=== PATIENT | female | born 1960 | race Caucasian/White ===

== ENCOUNTER 2019-02-24 10:12 | Emergency (ER) | payer OTHER, SELFPAY ==
--- NOTE | 2019-02-24 10:18 | ED.GENADUL_ITS ---
Discharge Plan Disposition Patient Disposition: HOME Condition: Stable Discharge Details Chief Complaint: Abd Prob Clinical Impression: Abdominal pain Primary Care Provider: Audra Calderon ED Provider: Georgie Waters Home Meds and New Rx's Prescriptions: New pantoprazole [Protonix] 40 mg tablet,delayed release (DR/EC) 40 mg PO DAILY Qty: 30 RF: 0 Continued ranitidine HCl 150 mg Tablet 150 mg PO BID RF: 0 Discharge Instructions Instructions: Abdominal Pain (ED) Additional Instructions: Please return immediately to the emergency department if you develop any new or worsening symptoms or if you become otherwise concerned. It is extremely important that you make an appointment to be seen in follow-up for this visit as soon as possible by your primary care doctor. Referrals: Audra Calderon [Primary Care Provider] - Discharge Data Discharge Date/Time-TO BE ENTERED AT DEPARTURE: 02/24/19 15:33 Medical Decision Making Audra Walker is a 58 y/o woman with history of GERD who presented to the emergency department with right upper quadrant pain since yesterday, worse with eating. On exam patient is well and nontoxic appearing but does appear uncomfortable. She has epigastric and right upper quadrant pain with a positive Andino sign, no peritoneal signs. Benign cardiopulmonary exam. Concern for biliary disease versus gastritis versus peptic ulcer disease versus pancreatitis versus less likely ACS. Exam/history is not consistent with PE, acute aortic pathology, sepsis, mesenteric ischemia. Plan for EKG, screening labs, right upper quadrant ultrasound, IV pain control, IV Zofran. Will monitor and reassess. Right upper quadrant ultrasound negative. Patient reporting pain improved after morphine but continued. Plan for CT scan. CT scan negative for acute process. Repeat EKG and troponin negative. Suspect gastritis/peptic ulcer disease. GI cocktail resulted in improvement of pain. Plan for Rx pantoprazole. I had a lengthy discussion with the patient prior to discharge regarding return to emergency department precautions, home care, and importance of outpatient follow-up. Clear plan in place for follow-up at time of discharge. Patient verbalized understanding of the plan and was amenable. All questions were answered. Medical Records Medical records reviewed: Yes I reviewed the patient's medical records. Imaging Data Radiologic Study: Attestation: I personally reviewed and interpreted this imaging study as follows: Radiologist's impression: ABDOMINAL ULTRASOUND: The hepatic parenchyma appears mildly echogenic without focal abnormality and the findings may represent hepatic steatosis. No cholelithiasis or biliary dilatation seen. The pancreas appears intact as visualized although the tail was not seen. The aorta and IVC are of normal diameter. The kidneys and spleen appear intact. There is a presumed extrarenal pelvis on the right. CONCLUSION: Negative examination of the abdomen except for a question of hepatic steatosis. ABDOMINAL AND PELVIC CT: A CT examination of the abdomen and pelvis was performed following the intravenous infusion of Omnipaque 350 and the ingestion of oral contrast. There may be mild hepatic steatosis. The spleen is normal in size and shape with no evidence of any focal defects. There is no evidence of biliary dilatation. The gallbladder has a normal CT appearance. The pancreas appears intact and is not enlarged. There is no evidence of retroperitoneal lymphadenopathy. The bladder appears intact. The kidneys show bilateral function and there is no evidence of a renal mass. The vascular structures appear intact. There is no evidence of a mass in the pelvis. There is no evidence of a fluid collection or adenopathy. CONCLUSION: No evidence of acute disease. Question mild hepatic steatosis. Lab Data Lab results reviewed: Yes I reviewed the patient's lab results. Laboratory Tests Range/Units 02/24/19 02/24/19 02/24/19 10:35 11:00 11:00 WBC (4.4-10.8) k/cumm 6.77 RBC (4.00-5.20) m/cumm 4.97 Hgb (12.0-15.5) g/dL 14.8 Hct (36.0-46.0) % 44.0 MCV (80-95) fL 88.5 MCH (27.0-33.0) pg 29.8 MCHC (32.0-36.0) g/dL 33.6 RDW (11.7-14.6) % 13.5 Plt Count (130-400) x1000/uL 177 MPV (8.0-11.0) fL 11.3 H Immature Gran % 0.1 Neutrophils % 87.4 Lymphocytes % 4.6 Monocytes % 5.9 Eosinophils % 1.9 Basophils % 0.1 Absolute Neutrophils (1.2-6.7) k/cumm 5.91 Absolute Lymphocytes (1.2-3.4) k/cumm 0.31 L Absolute Monocytes (0.11-0.7) k/cumm 0.40 Absolute Eosinophils (0.0-0.7) k/cumm 0.13 Absolute Basophils (0.0-0.2) k/cumm 0.01 ESR (0-30) MM/HR Sodium (136-145) mmol/L 138 Potassium (3.5-5.1) mmol/L 3.8 Chloride (98-107) mmol/L 100 Carbon Dioxide (21.0-32.0) mmol/L 26.3 Anion Gap (3-11) mmol/L 11.7 H BUN (7-18) mg/dL 18 Creatinine (0.55-1.02) mg/dL 0.93 Estimated GFR/1.73 m2 (mL/min/1.73m2) >= 60.00 Glucose (70-100) mg/dL 112 H Calcium (8.5-10.1) mg/dL 8.9 Total Bilirubin (0.2-1.0) mg/dL 0.7 AST (15-37) U/L 30 ALT (12-78) U/L 53 Alkaline Phosphatase (46-116) U/L 95 Troponin I (0.00-0.06) ng/mL C-Reactive Protein (0.0-0.3) mg/dL Total Protein (6.4-8.2) g/dL 8.0 Albumin (3.4-5.0) g/dL 4.3 Lipase (73-393) U/L Urine Color (Yellow) Yellow Urine Clarity Clear Urine pH (5-8) 5.5 Ur Specific Williams (1.005-1.025) 1.025 Urine Protein (Negative) mg/dL Negative Urine Ketones (Negative) mg/dL Negative Urine Blood (Negative) Negative Urine Nitrite (Negative) Negative Urine Bilirubin (Negative) Negative Urine Urobilinogen (Up TO 0.2) EU/dL 0.2 Ur Leukocyte Esterase (Negative) Negative Urine Glucose (Negative) mg/dL Negative Range/Units 02/24/19 02/24/19 02/24/19 11:00 11:00 11:00 WBC (4.4-10.8) k/cumm RBC (4.00-5.20) m/cumm Hgb (12.0-15.5) g/dL Hct (36.0-46.0) % MCV (80-95) fL MCH (27.0-33.0) pg MCHC (32.0-36.0) g/dL RDW (11.7-14.6) % Plt Count (130-400) x1000/uL MPV (8.0-11.0) fL Immature Gran % Neutrophils % Lymphocytes % Monocytes % Eosinophils % Basophils % Absolute Neutrophils (1.2-6.7) k/cumm Absolute Lymphocytes (1.2-3.4) k/cumm Absolute Monocytes (0.11-0.7) k/cumm Absolute Eosinophils (0.0-0.7) k/cumm Absolute Basophils (0.0-0.2) k/cumm ESR (0-30) MM/HR 11 Sodium (136-145) mmol/L Potassium (3.5-5.1) mmol/L Chloride (98-107) mmol/L Carbon Dioxide (21.0-32.0) mmol/L Anion Gap (3-11) mmol/L BUN (7-18) mg/dL Creatinine (0.55-1.02) mg/dL Estimated GFR/1.73 m2 (mL/min/1.73m2) Glucose (70-100) mg/dL Calcium (8.5-10.1) mg/dL Total Bilirubin (0.2-1.0) mg/dL AST (15-37) U/L ALT (12-78) U/L Alkaline Phosphatase (46-116) U/L Troponin I (0.00-0.06) ng/mL C-Reactive Protein (0.0-0.3) mg/dL 0.91 H Total Protein (6.4-8.2) g/dL Albumin (3.4-5.0) g/dL Lipase (73-393) U/L 122 Urine Color (Yellow) Urine Clarity Urine pH (5-8) Ur Specific Williams (1.005-1.025) Urine Protein (Negative) mg/dL Urine Ketones (Negative) mg/dL Urine Blood (Negative) Urine Nitrite (Negative) Urine Bilirubin (Negative) Urine Urobilinogen (Up TO 0.2) EU/dL Ur Leukocyte Esterase (Negative) Urine Glucose (Negative) mg/dL Range/Units 02/24/19 11:00 WBC (4.4-10.8) k/cumm RBC (4.00-5.20) m/cumm Hgb (12.0-15.5) g/dL Hct (36.0-46.0) % MCV (80-95) fL MCH (27.0-33.0) pg MCHC (32.0-36.0) g/dL RDW (11.7-14.6) % Plt Count (130-400) x1000/uL MPV (8.0-11.0) fL Immature Gran % Neutrophils % Lymphocytes % Monocytes % Eosinophils % Basophils % Absolute Neutrophils (1.2-6.7) k/cumm Absolute Lymphocytes (1.2-3.4) k/cumm Absolute Monocytes (0.11-0.7) k/cumm Absolute Eosinophils (0.0-0.7) k/cumm Absolute Basophils (0.0-0.2) k/cumm ESR (0-30) MM/HR Sodium (136-145) mmol/L Potassium (3.5-5.1) mmol/L Chloride (98-107) mmol/L Carbon Dioxide (21.0-32.0) mmol/L Anion Gap (3-11) mmol/L BUN (7-18) mg/dL Creatinine (0.55-1.02) mg/dL Estimated GFR/1.73 m2 (mL/min/1.73m2) Glucose (70-100) mg/dL Calcium (8.5-10.1) mg/dL Total Bilirubin (0.2-1.0) mg/dL AST (15-37) U/L ALT (12-78) U/L Alkaline Phosphatase (46-116) U/L Troponin I (0.00-0.06) ng/mL < 0.02 C-Reactive Protein (0.0-0.3) mg/dL Total Protein (6.4-8.2) g/dL Albumin (3.4-5.0) g/dL Lipase (73-393) U/L Urine Color (Yellow) Urine Clarity Urine pH (5-8) Ur Specific Williams (1.005-1.025) Urine Protein (Negative) mg/dL Urine Ketones (Negative) mg/dL Urine Blood (Negative) Urine Nitrite (Negative) Urine Bilirubin (Negative) Urine Urobilinogen (Up TO 0.2) EU/dL Ur Leukocyte Esterase (Negative) Urine Glucose (Negative) mg/dL ECG Data Attestation: I personally reviewed and interpreted this ECG (s) as follows: Interpretation: EKG shows sinus rhythm at 78, normal axis, Q waves V1 and V2, no acute ischemic changes, nondiagnostic EKG EKG #2 shows sinus rhythm at 79, normal axis, no acute ischemic changes, nondiagnostic EKG HPI General Mode of arrival: ambulatory . Date/Time Provider Initiated Documentation: 02/24/19 10:18 . Limitations to Documentation: no limitations . Information obtained by: patient, RN notes reviewed and old records reviewed . HPI Narrative: Audra Walker is a 58 y/o woman with history of GERD presenting to the emergency department with abdominal pain. Patient reports that she de veloped right upper quadrant pain yesterday, and saw her PCP this morning for this. She was sent in from her PCPs office for further evaluation. Patient reports that pain is sharp and burning, and is made worse by eating. Nonexertional, nonpleuritic, non-positional. She has had nausea without vomiting. No constipation or diarrhea. She denies any other pain, fevers, shortness of breath, cough. She is previously in her usual state of health without recent illness. No recent travel. Related Data Home Medications Medication Instructions Recorded Confirmed pantoprazole [Protonix] 40 mg PO DAILY #30 tab 02/24/19 ranitidine HCl 150 mg PO BID 02/24/19 02/24/19 Previous Rx's Medication Instructions Recorded pantoprazole [Protonix] 40 mg PO DAILY #30 tab 02/24/19 Allergies Allergy/AdvReac Type Severity Reaction Status Date / Time No Known Allergies Allergy Unverified 02/24/19 10:27 Review of Systems Review of Systems Constitutional: denies fevers Eyes: denies eye pain ENT: denies facial pain, dental pain, sore throat Cardiovascular: denies chest pain Respiratory: denies SOB, cough GI: Reports abdominal pain, denies vomiting, diarrhea : denies flank pain MSK: denies back pain, neck pain, arthralgias, myalgias Skin: denies rash Neuro: denies headaches, numbness, weakness [facility] Medical History Hearing impairment Reflux gastritis Vertigo Surgical History Colonoscopy - MAC (09/14/17) Family History Other Hyperlipidemia Personal history of malignant neoplasm Social History Smoking/Tobacco Use Status: Never Drug use: Never Substance use type: does not use Do you feel safe in your relationship?: Yes Exam Narrative Exam Narrative: Constitutional: well and [id number], pleasant, conversing normally but appears uncomfortable HENT: head atraumatic/normocephalic/normal inspection, mucous membranes moist Eyes: conjunctiva normal, sclera normal, pupils 3mm b/l Neck: no stridor, normal ROM, trachea midline Chest: normal inspection Resp: normal work of breathing, LCTAB Cardio: normal rate, normal rhythm, no murmur appreciated GI: abdomen soft, non-distended, moderate tenderness to palpation in right upper quadrant and epigastrium with positive Andino sign, no lower abdominal tenderness to palpation, no rebound or guarding, no CVA tenderness bilaterally Back: normal inspection, no rash Skin: warm, dry, normal color, no rash Neuro: alert, not altered, grossly non-focal, normal tone Ext: no edema Psych: normal mood, normal affect, normal behavior
[2019-02-24 10:23] VITALS: BP 150/76; PULSE 81; RESP 16; TEMP 36.6; O2SAT 99
[2019-02-24 10:47] LABS: Bilirubin Negative (Negative); Blood Negative (Negative); Clarity Clear; Glucose Negative (Negative); Ketones Negative (Negative); Leukocyte Esterase Negative (Negative); Nitrite Negative (Negative); Specific Gravity 1.025 (1.005-1.025); Urobilinogen 0.2 EU/dL (Up TO 0.2); pH 5.5 (5-8)
--- NOTE | 2019-02-24 10:53 | DI.US_ITS ---
SYMPTOMS/DIAGNOSIS: RT UPPER QUAD PAIN ABDOMINAL ULTRASOUND: The hepatic parenchyma appears mildly echogenic without focal abnormality and the findings may represent hepatic steatosis. No cholelithiasis or biliary dilatation seen. The pancreas appears intact as visualized although the tail was not seen. The aorta and IVC are of normal diameter. The kidneys and spleen appear intact. There is a presumed extrarenal pelvis on the right. CONCLUSION: Negative examination of the abdomen except for a question of hepatic steatosis.
[2019-02-24] MEDS: Ondansetron 4 MG/2 ML VIAL IVP (11:10)
[2019-02-24 11:14] LABS: Abs Immature Grans 0.01 k/cumm (0.0-0.09); Absolute Basophil Count 0.01 k/cumm (0.0-0.2); Absolute Eosinophil Count 0.13 k/cumm (0.0-0.7); Absolute Lymphocyte Count 0.31 k/cumm (1.2-3.4); Absolute Neutrophil Count 5.91 k/cumm (1.2-6.7); Basophils % 0.1; Eosinophils % 1.9; HGB 14.8 g/dL (12.0-15.5); Immature Grans % 0.1; Lymphocytes % 4.6; Mean Corp. HGB Concentration 33.6 g/dL (32.0-36.0); Mean Corpuscular Hemoglobin 29.8 pg (27.0-33.0); Mean Corpuscular Volume 88.5 fL (80-95); Mean Platelet Volume 11.3 fL (8.0-11.0); Monocytes % 5.9; Neutrophils % 87.4; Platelet Count 177 x1000/uL (130-400); RBC 4.97 m/cumm (4.00-5.20); RBC Distribution Width 13.5 % (11.7-14.6); White Blood Cell Count 6.77 k/cumm (4.4-10.8)
[2019-02-24 11:19] LABS: Lipase 122 U/L (73-393)
[2019-02-24 11:24] LABS: ALT 53 U/L (12-78); AST 30 U/L (15-37); Albumin 4.3 g/dL (3.4-5.0); Alkaline Phosphatase 95 U/L (46-116); Anion Gap 11.7 mmol/L (3-11); BUN 18 mg/dL (7-18); Bilirubin, Total 0.7 mg/dL (0.2-1.0); CO2 26.3 mmol/L (21.0-32.0); CREATININE 0.93 mg/dL (0.55-1.02); Calcium 8.9 mg/dL (8.5-10.1); Chloride 100 mmol/L (98-107); Glucose 112 mg/dL (70-100); Potassium 3.8 mmol/L (3.5-5.1); Sodium 138 mmol/L (136-145)
[2019-02-24] MEDS: Normal Saline 1,000 ML 1000 ML IV (12:05)
--- NOTE | 2019-02-24 12:24 | DI.CT_ITS ---
SYMPTOMS/DIAGNOSIS: RIGHT UPPER QUADRANT PAIN ABDOMINAL AND PELVIC CT: A CT examination of the abdomen and pelvis was performed following the intravenous infusion of Omnipaque 350 and the ingestion of oral contrast. There may be mild hepatic steatosis. The spleen is normal in size and shape with no evidence of any focal defects. There is no evidence of biliary dilatation. The gallbladder has a normal CT appearance. The pancreas appears intact and is not enlarged. There is no evidence of retroperitoneal lymphadenopathy. The bladder appears intact. The kidneys show bilateral function and there is no evidence of a renal mass. The vascular structures appear intact. There is no evidence of a mass in the pelvis. There is no evidence of a fluid collection or adenopathy. CONCLUSION: No evidence of acute disease. Question mild hepatic steatosis.
[2019-02-24 13:10] LABS: C-Reactive Protein 0.91 mg/dL (0.0-0.3)
[2019-02-24 13:40] LABS: ESR 11 MM/HR (0-30)
[2019-02-24] MEDS: Omnipaque 350 MG/ML 100 ML BTL IJ (13:56)
[2019-02-24 15:07] LABS: Troponin I < 0.02 ng/mL (0.00-0.06)
[2019-02-24 15:13] VITALS: BP 100/56; PULSE 78; RESP 16; O2SAT 96
[2019-02-24 15:30] VITALS: BP 100/56; PULSE 78; RESP 16; TEMP 36.6; O2SAT 96
== END 2019-02-24 15:33 | disposition home or self-care (01) ==
PROVIDERS: Emergency Provider Student in an Organized Health Care Education/Training Program; PCP Family Medicine
DX: R10.11 Right upper quadrant pain (principal)
CPT/HCPCS: 36415; 80053; 83690; 85652; 93005; 96361; 96374; 96375; 99285; 74177; 76700; 81003; 84484; 85025; 86140; 93010; J2405; J3490

== ENCOUNTER 2019-02-28 02:23 | Outpatient (CLI) | payer OTHER, SELFPAY ==
--- NOTE | 2019-02-28 08:30 | DI.NM_ITS ---
SYMPTOM/DIAGNOSIS: ACUTE ABD PAIN, R19.0 HEPATOBILIARY SCAN: Hepatobiliary scan was performed with intravenous infusion of 4.6 millicuries of Technetium 99 labeled Mebrofenin. Following intravenous injection of radiopharmaceutical, there was prompt homogeneous hepatic uptake and prompt uptake in the bile ducts, gallbladder and small intestine. CONCLUSION: Normal hepatobiliary scan. No evidence of acute cholecystitis.
== END 2019-02-28 02:43 ==
PROVIDERS: PCP Family Medicine; Visit Provider Family Medicine
DX: R10.9 Unspecified abdominal pain (principal)
CPT/HCPCS: 78227

== ENCOUNTER 2019-09-22 08:20 | Outpatient (CLI) | payer OTHER, SELFPAY ==
[2019-09-22 09:04] LABS: Abs Immature Grans 0.01 k/cumm (0.0-0.09); Absolute Basophil Count 0.05 k/cumm (0.0-0.2); Absolute Eosinophil Count 0.16 k/cumm (0.0-0.7); Absolute Lymphocyte Count 1.46 k/cumm (1.2-3.4); Absolute Monocyte Count 0.39 k/cumm (0.11-0.7); Absolute Neutrophil Count 2.89 k/cumm (1.2-6.7); Eosinophils % 3.2; HCT 42.4 % (36.0-46.0); HGB 14.4 g/dL (12.0-15.5); Immature Grans % 0.2; Lymphocytes % 29.4; Mean Corpuscular Hemoglobin 30.2 pg (27.0-33.0); Mean Corpuscular Volume 88.9 fL (80-95); Mean Platelet Volume 11.4 fL (8.0-11.0); Monocytes % 7.9; Neutrophils % 58.3; Platelet Count 229 x1000/uL (130-400); RBC 4.77 m/cumm (4.00-5.20); RBC Distribution Width 12.9 % (11.7-14.6); White Blood Cell Count 4.96 k/cumm (4.4-10.8)
[2019-09-22 10:15] LABS: Iron 103 ug/dL (50-175); Total Iron Binding Capacity 340 ug/dL (250-450); Transferrin Sat 30 % (15-50)
[2019-09-22 10:28] LABS: Anion Gap 8.5 mmol/L (3-11); BUN 17 mg/dL (7-18); CO2 30.5 mmol/L (21.0-32.0); CREATININE 0.91 mg/dL (0.55-1.02); Calcium 9.5 mg/dL (8.5-10.1); Chloride 103 mmol/L (98-107); Ferritin 152 ng/mL (8-388); Glucose 88 mg/dL (70-100); Magnesium 2.2 mg/dL (1.8-2.4); Potassium 4.2 mmol/L (3.5-5.1); Sodium 142 mmol/L (136-145); TSH (W/Ref FT4) 1.36 uIU/mL (0.36-3.74)
[2019-09-22 14:02] LABS: Hemoglobin A1C 5.4 % (4.5-6.2)
== END 2019-09-22 08:40 ==
PROVIDERS: Nurse Practitioner Family; PCP Family Medicine; Visit Provider Family Medicine
DX: J02.9 Acute pharyngitis, unspecified (principal); G47.62 Sleep related leg cramps; R73.9 Hyperglycemia, unspecified
CPT/HCPCS: 36415; 80048; 82728; 83036; 83540; 83550; 83735; 84443; 85025

== ENCOUNTER 2019-09-25 01:46 | Outpatient (CLI) | payer OTHER, SELFPAY ==
--- NOTE | 2019-09-25 07:46 | DI.MAMMO_ITS ---
EXAM: MG MAMMO SCREENING CLINICAL HISTORY: SCREENING, PREVENTIVE CARE, Z00.00,Z12.39 TECHNIQUE: Mammograms were interpreted according to the usual protocol including computer analysis w [employer] CAD system, tomosynthesis and C-view imaging. COMPARISON: [id number] FINDINGS: The breasts are composed of scattered areas of fibroglandular density, breast density category B. No suspicious masses or microcalcifications are seen. There has been no significant change when compared with the prior examinations. IMPRESSION: Category 1, negative mammogram. Yearly screening mammography is recommended. BI-RADS Cat 1 - Negative Breast Density - Category B - Scattered areas of fibroglandular density
== END 2019-09-25 02:06 ==
PROVIDERS: PCP Family Medicine; Visit Provider Family Medicine
DX: Z12.31 Encounter for screening mammogram for malignant neoplasm of breast (principal)
CPT/HCPCS: 77063; 77067

== ENCOUNTER 2021-02-07 03:14 | Outpatient (CLI) | payer OTHER, SELFPAY ==
[2021-02-07 08:39] LABS: HCT 41.3 % (36.0-46.0); HGB 14.1 g/dL (11.2-15.7); MCH 30.3 pg (27.0-33.0); MCHC 34.1 % (32.0-36.0); MCV 88.8 fL (80-95); MPV 11.4 fL (8.0-11.0); Platelet Count 213 10^3/uL (130-400); RBC 4.65 10^6/uL (3.93-5.22); RDW 12.9 % (11.7-14.6); RDW-SD 41.8 fL; WBC 4.29 10^3/uL (4.4-10.8)
[2021-02-07 09:04] LABS: Hemoglobin A1C 5.6 % (<5.7)
[2021-02-07 09:41] LABS: ALT 69 U/L (14-59); AST 34 U/L (15-37); Alkaline Phosphatase 95 U/L (46-116); Anion Gap 11.2 mmol/L (3-11); BUN 17 mg/dL (7-18); Bilirubin, Total 0.4 mg/dL (0.2-1.0); CO2 25.8 mmol/L (21.0-32.0); CREATININE 0.8 mg/dL (0.55-1.02); Calcium 9.1 mg/dL (8.5-10.1); Calculated LDL 115 mg/dL (<100); Chloride 105 mmol/L (98-107); Cholesterol 204 mg/dL (<200); Glucose 103 mg/dL (74-106); HDL Cholesterol 64 mg/dL (40-60); Potassium 4.2 mmol/L (3.5-5.1); Sodium 142 mmol/L (136-145); Total Protein 7.3 g/dL (6.4-8.2); Triglyceride 126 mg/dL (<150)
== END 2021-02-07 03:15 | disposition home or self-care (01) ==
LOC: LBO 03:14
PROVIDERS: PCP Family Medicine; Visit Provider Family Medicine
DX: Z00.00 Encounter for general adult medical examination without abnormal findings (principal); R10.11 Right upper quadrant pain; K64.9 Unspecified hemorrhoids; Z13.1 Encounter for screening for diabetes mellitus; Z13.220 Encounter for screening for lipoid disorders; G47.62 Sleep related leg cramps
CPT/HCPCS: 36415; 80053; 80061; 85027; 83036

== ENCOUNTER 2021-02-24 03:11 | Outpatient (CLI) | payer OTHER, SELFPAY ==
[2021-02-24 09:57] LABS: Source Nasal/Nares
[2021-02-24 12:40] LABS: COVID-19 PCR Negative (Negative)
== END 2021-02-24 03:12 | disposition home or self-care (01) ==
LOC: LBO 03:11
PROVIDERS: PCP Family Medicine; Visit Provider Ophthalmology Ophthalmic Plastic and Reconstructive Surgery
DX: Z20.822 Contact with and (suspected) exposure to COVID-19 (principal)
CPT/HCPCS: 87635

== ENCOUNTER 2022-10-12 09:29 | Outpatient (CLI) | payer OTHER, SELFPAY ==
[2022-10-12 12:31] LABS: Abs Immature Grans 0.02 10^3/uL (0.0-0.06); Absolute Basophil Count 0.06 10^3/uL (0.0-0.2); Absolute Eosinophil Count 0.29 10^3/uL (0.0-0.7); Absolute Lymphocyte Count 1.42 10^3/uL (1.2-3.4); Absolute Monocyte Count 0.56 10^3/uL (0.1-0.8); Absolute Neutrophil Count 3.45 10^3/uL (1.2-6.7); HCT 45.9 % (36.0-46.0); HGB 15.1 g/dL (11.2-15.7); Immature Grans % 0.3; Lymphocytes % 24.5; MCH 29.8 pg (27.0-33.0); MCHC 32.9 % (32.0-36.0); MCV 91 fL (80-95); MPV 12.1 fL (8.0-11.0); Monocytes % 9.7; Neutrophils % 59.5; Platelet Count 237 10^3/uL (130-400); RBC 5.06 10^6/uL (3.93-5.22); RDW 12.6 % (11.7-14.6); RDW-SD 41.5 fL
[2022-10-12 13:18] LABS: ALT 64 U/L (14-59); AST 32 U/L (15-37); Albumin 4.4 g/dL (3.4-5.0); Alkaline Phosphatase 108 U/L (46-116); Anion Gap 8.6 mmol/L (3-11); BUN 15 mg/dL (7-18); Bilirubin, Total 0.7 mg/dL (0.2-1.0); CO2 27.4 mmol/L (21.0-32.0); CREATININE 0.9 mg/dL (0.55-1.02); Calcium 9.7 mg/dL (8.5-10.1); Chloride 105 mmol/L (98-107); Estimated GFR 73.19 (mL/min/1.73m2); Glucose 132 mg/dL (74-106); Potassium 3.5 mmol/L (3.5-5.1); Sodium 141 mmol/L (136-145); Total Protein 8.3 g/dL (6.4-8.2); Vitamin B12 442 pg/mL (193-986)
== END 2022-10-12 09:30 | disposition home or self-care (01) ==
LOC: LOS 09:29
PROVIDERS: PCP Family Medicine; Referring Provider Nurse Practitioner Family; Visit Provider Nurse Practitioner Family
DX: G62.9 Polyneuropathy, unspecified (principal)
CPT/HCPCS: 36415; 80053; 82607; 85025

== ENCOUNTER 2023-01-10 10:11 | Outpatient (REF) | payer OTHER, SELFPAY ==
[2023-01-10 16:06] LABS: ALT 93 U/L (14-59); AST 47 U/L (15-37); Albumin 4.5 g/dL (3.4-5.0); Alkaline Phosphatase 111 U/L (46-116); Anion Gap 11.6 mmol/L (3-11); BUN 15 mg/dL (7-18); Bilirubin, Total 0.6 mg/dL (0.2-1.0); CO2 26.4 mmol/L (21.0-32.0); CREATININE 0.8 mg/dL (0.55-1.02); Calcium 9.6 mg/dL (8.5-10.1); Calculated LDL 135 mg/dL (<100); Chloride 104 mmol/L (98-107); Cholesterol 232 mg/dL (<200); Glucose 106 mg/dL (74-106); HDL Cholesterol 64 mg/dL (40-60); Potassium 4.1 mmol/L (3.5-5.1); Sodium 142 mmol/L (136-145); Total Protein 7.8 g/dL (6.4-8.2); Triglyceride 167 mg/dL (<150); Vitamin B12 514 pg/mL (193-986)
== END 2023-01-10 10:12 | disposition home or self-care (01) ==
LOC: NCHCN 10:11
PROVIDERS: PCP Family Medicine; Visit Provider Family Medicine
DX: E53.9 Vitamin B deficiency, unspecified (principal); Z13.1 Encounter for screening for diabetes mellitus; Z13.220 Encounter for screening for lipoid disorders; R79.89 Other specified abnormal findings of blood chemistry
CPT/HCPCS: 80053; 80061; 82607

== ENCOUNTER 2023-01-22 01:39 | Outpatient (CLI) | payer OTHER, SELFPAY ==
--- NOTE | 2023-01-22 | DI.MAMMO_ITS ---
Exam(s) MAMMO SCREENING EXAM: MAMMO SCREENING CLINICAL HISTORY: SCREENING FOR BREAST CANCER Z12.39 TECHNIQUE: Bilateral full field digital CC and MLO mammographic images were obtained with 3D tomosyn thesis and utilizing computer aided detection (CAD). COMPARISON: Available for comparison. FINDINGS: Masses/Architectural Distortion: There is an area of asymmetric breast tissue in the medial right josselyn ast on the CC view. It may represent overlying fibroglandular tissue, but it appears more prominent compared to the prior examination. Microcalcifications: No suspicious pleomorphic-type are seen. Skin Thickening/Nipple Retraction: None. IMPRESSION: 1. Focal asymmetry in the posterior medial right breast on the craniocaudad view. 2. This should be evaluated with a spot compression view. Limited right breast ultrasound may also b e indicated at that time. BI-RADS Category 0 - Assessment Incomplete: Need additional imaging evaluation Breast Density - Category B - Scattered areas of fibroglandular density Breast density category C or D implies that the patient has dense breast tissue. Dense breast tissue is very common and is not abnormal but dense breast tissue can make it harder to find cancer on a ma mmogram. Also, dense breast tissue may increase their breast cancer risk. This information about the result of the mammogram report was provided to the patient to raise their awareness. Use this report when you speak with the patient about their risks for breast cancer, which includes their family hist ory. At that time, you may recommend for more screening tests (Ultrasound or MRI) as they might be us eful based on their risk. A negative radiographic report should not delay biopsy if a dominant or clinically suspicious mass is present. Up to ten percent of cancers are not identified on mammography. A negative report may reinforce clinical impression. Adenosis and dense breasts may obscure an underlying neoplasm. False positive reports average 6 to 10%. Patient will receive a letter notifying them of these results.
== END 2023-01-22 01:59 ==
LOC: DI 01:39
PROVIDERS: PCP Family Medicine; Visit Provider Family Medicine
DX: Z12.31 Encounter for screening mammogram for malignant neoplasm of breast (principal); R92.8 Other abnormal and inconclusive findings on diagnostic imaging of breast
CPT/HCPCS: 77063; 77067

== ENCOUNTER 2023-01-25 01:58 | Outpatient (CLI) | payer OTHER, SELFPAY ==
--- NOTE | 2023-01-25 | DI.MAMMO_ITS ---
Exam(s) MG MAMMO SCREEN CALL BACK UNI EXAM: MG MAMMO SCREEN CALL BACK UNI CLINICAL HISTORY: F/U ABNL MAMMO, ASYMMETRIC BREAST TISSUE RT BREAST. TECHNIQUE: Craniocaudal and mediolateral oblique Full Field Digital Mammography views of the right b reast with Computer Aided Diagnosis. COMPARISON: Comparison is made with prior examinations. FINDINGS: Mammography/Tomosynthesis: Masses/Architectural Distortion: The area of concern does not persist on the follow-up examination. There has been no significant change in appearance of the right breast compared to the prior examinat ions. Microcalcifictions: No suspicious pleomorphic-type are seen. Skin Thickening/Nipple Retraction: None. IMPRESSION: 1. No evidence of malignancy is noted. 2. Unless there is more urgent need, follow-up screening mammography is recommended, as per [employer] guidelines. 3. The findings were discussed with the patient on the date of the examination. BI-RADS Category 1 - Negative Breast Density - Category B - Scattered areas of fibroglandular density Breast density Category C or D implies that the patient has dense breast tissue. Dense breast tissue can make it harder to find cancer on a mammogram. Dense breast tissue is also associated with an incr eased risk of breast cancer. This information about the result of the mammogram report was provided to the patient to raise their awareness. Use this report when you speak with the patient about their risks for breast cancer, which includes their family history. At that time, you may recommend additional screening tests (Ultrasoun d or MRI) as these tests may add significant information. A negative radiographic report should not delay biopsy if a dominant or clinically suspicious mass is present. Up to ten percent of cancers are not identified on mammography. A negative report may reinforce clinical impression. Adenosis and dense breasts may obscure an underlying neoplasm. False positive reports average 6 to 10%. Patient will receive a letter notifying them of these results.
== END 2023-01-25 02:18 ==
LOC: DI 01:58
PROVIDERS: PCP Family Medicine; Visit Provider Family Medicine
DX: Z12.31 Encounter for screening mammogram for malignant neoplasm of breast (principal); R92.8 Other abnormal and inconclusive findings on diagnostic imaging of breast; N64.59 Other signs and symptoms in breast
CPT/HCPCS: 77063; 77067

== ENCOUNTER 2023-04-19 11:34 | Outpatient (REF) | payer OTHER, SELFPAY ==
--- NOTE | 2023-04-19 11:15 | PAPFT_PTH ---
PATIENT: Audra Walker LOC: [facility]#:[id number] AGE/SX: 62/F ROOM: RE04/19/[address]: Heather Perez : 1960 BED: DIS: 04/19/2023 SPEC #: [id number] RECD: 04/19/23 17:04 STATUS: ROBBIN JENSEN #: [id number] JOSEFINA: 04/19/23 11:[address]: Heather Perez DEPT: [facility] Cytology RECD BY: Nati Addison ENTERED: 04/19/23 17:04 SP TYPE: PAPFT OTHR DR: Audra Calderon Tissues: 1 - CX/ENDOCX FOR PAP SMEARS Procedures: PAP THIN PREP/UVM Screening HPV DNA PROBE Comments: [id number]
[2023-04-19 14:49] LABS: ALT 76 U/L (14-59); AST 46 U/L (15-37); Albumin 4.9 g/dL (3.4-5.0); Alkaline Phosphatase 110 U/L (46-116); Anion Gap 10.5 mmol/L (3-11); BUN 19 mg/dL (7-18); Bilirubin, Total 0.7 mg/dL (0.2-1.0); CO2 27.5 mmol/L (21.0-32.0); CREATININE 0.8 mg/dL (0.55-1.02); Calcium 10.1 mg/dL (8.5-10.1); Chloride 102 mmol/L (98-107); Glucose 94 mg/dL (74-106); Potassium 4.3 mmol/L (3.5-5.1); Sodium 140 mmol/L (136-145); TSH (W/Ref FT4) 1.52 uIU/mL (0.36-3.74); Total Protein 8.6 g/dL (6.4-8.2)
[2023-04-19 16:01] LABS: Vitamin D 25 Total 14.2 ng/mL (30-100)
== END 2023-04-19 11:35 | disposition home or self-care (01) ==
LOC: NCHCN 11:34
PROVIDERS: PCP Family Medicine; Visit Provider Family Medicine
DX: Z00.00 Encounter for general adult medical examination without abnormal findings (principal); K75.81 Nonalcoholic steatohepatitis (NASH); E66.9 Obesity, unspecified; Z13.220 Encounter for screening for lipoid disorders; Z13.29 Encounter for screening for other suspected endocrine disorder; E55.9 Vitamin D deficiency, unspecified; Z12.4 Encounter for screening for malignant neoplasm of cervix; Z11.51 Encounter for screening for human papillomavirus (HPV)
CPT/HCPCS: 80053; 82306; 88142; 84443; 87624

== ENCOUNTER 2024-01-16 14:12 | Outpatient (CLI) | payer OTHER, SELFPAY ==
[2024-01-16 13:53] LABS: HCT 43.9 % (36.0-46.0); HGB 14.8 g/dL (11.2-15.7); MCH 29.7 pg (27.0-33.0); MCHC 33.7 % (32.0-36.0); MCV 88 fL (80-95); MPV 11.1 fL (8.0-11.0); Platelet Count 239 10^3/uL (130-400); RBC 4.98 10^6/uL (3.93-5.22); RDW 12.9 % (11.7-14.6); RDW-SD 41.8 fL; WBC 6.88 10^3/uL (4.4-10.8)
[2024-01-16 14:03] LABS: Hemoglobin A1C 5.7 % (<5.7)
[2024-01-16 14:10] LABS: ALT 56 U/L (14-59); AST 31 U/L (15-37); Albumin 4.2 g/dL (3.4-5.0); Alkaline Phosphatase 118 U/L (46-116); Anion Gap 10.1 mmol/L (3-11); BUN 21 mg/dL (7-18); Bilirubin, Total 0.6 mg/dL (0.2-1.0); CO2 26.9 mmol/L (21.0-32.0); Calcium 10.1 mg/dL (8.5-10.1); Chloride 104 mmol/L (98-107); Estimated GFR 64.09 (mL/min/1.73m2); Glucose 99 mg/dL (74-106); Potassium 3.5 mmol/L (3.5-5.1); Sodium 141 mmol/L (136-145); Total Protein 8.1 g/dL (6.4-8.2)
[2024-01-16 14:33] LABS: Vitamin D 25 Total 9.1 ng/mL (30-100)
== END 2024-01-16 14:13 | disposition home or self-care (01) ==
LOC: LBO 14:12
PROVIDERS: PCP Family Medicine; Visit Provider Family Medicine
DX: F10.10 Alcohol abuse, uncomplicated (principal); K75.81 Nonalcoholic steatohepatitis (NASH); E55.9 Vitamin D deficiency, unspecified; R79.89 Other specified abnormal findings of blood chemistry; E66.8 Other obesity
CPT/HCPCS: 36415; 80053; 82306; 85027; 83036

== ENCOUNTER 2024-04-10 05:24 | Outpatient (CLI) | payer OTHER, SELFPAY ==
[2024-04-10 12:27] LABS: HCT 41.5 % (36.0-46.0); HGB 14.2 g/dL (11.2-15.7); MCHC 34.2 % (32.0-36.0); MCV 88 fL (80-95); MPV 11.3 fL (8.0-11.0); Platelet Count 246 10^3/uL (130-400); RBC 4.74 10^6/uL (3.93-5.22); RDW 12.7 % (11.7-14.6); RDW-SD 40.4 fL; WBC 6.32 10^3/uL (4.4-10.8)
[2024-04-10 12:39] LABS: Hemoglobin A1C 5.9 % (<5.7)
[2024-04-10 13:33] LABS: ALT 53 U/L (14-59); AST 35 U/L (15-37); Albumin 4.2 g/dL (3.4-5.0); Alkaline Phosphatase 93 U/L (46-116); Anion Gap 9.5 mmol/L (3-11); BUN 15 mg/dL (7-18); Bilirubin, Total 0.6 mg/dL (0.2-1.0); CO2 30.5 mmol/L (21.0-32.0); CREATININE 0.9 mg/dL (0.55-1.02); Calcium 9.8 mg/dL (8.5-10.1); Chloride 100 mmol/L (98-107); Estimated GFR 72.73 (mL/min/1.73m2); Glucose 100 mg/dL (74-106); Sodium 140 mmol/L (136-145); Total Protein 7.9 g/dL (6.4-8.2)
== END 2024-04-10 05:25 | disposition home or self-care (01) ==
PROVIDERS: PCP Family Medicine; Visit Provider Family Medicine
DX: F10.10 Alcohol abuse, uncomplicated (principal); K75.81 Nonalcoholic steatohepatitis (NASH); E55.9 Vitamin D deficiency, unspecified; E66.9 Obesity, unspecified; I10 Essential (primary) hypertension
CPT/HCPCS: 36415; 80053; 82306; 85027; 83036

== ENCOUNTER 2024-04-23 18:16 | Emergency (ER) | payer OTHER, SELFPAY ==
[2024-04-23] VITALS (19 sets, daily range): BP systolic 157–199; BP diastolic 74–119; PULSE 59–69; RESP 12–22; TEMP 36.7; O2SAT 98
--- NOTE | 2024-04-23 18:32 | W.ED.GENAD ---
Discharge Plan Disposition Patient Disposition: Home Condition: Stable Discharge Details Clinical Impression: Leg swelling Primary Care Provider: Audra Calderon ED Provider: Eyal Ball Home Meds and New Rx's Prescriptions: New furosemide 20 mg tablet 20 mg PO DAILY Qty: 30 0RF Continued losartan 50 mg tablet 50 mg PO DAILY Patient Comments: TAKE 1 TABLET BY MOUTH EVERY DAY cholecalciferol (vitamin D3) 25 mcg (1,000 unit) capsule 25 mcg PO DAILY Patient Comments: TAKE 1 CAPSULE BY MOUTH EVERY DAY Discharge Instructions Additional Instructions: Your blood work did not show any concerning findings at this time. Try keeping her legs elevated when sitting or laying down, and can also use [id number] compression stockings. Follow-up primary care provider within 1 to 2 weeks. You should have your blood pressure rechecked with them and also discuss if you should continue the furosemide. If you are more ill or have new symptoms such as difficulty breathing or chest pain return to the emergency department for reevaluation HPI General Mode of arrival: ambulatory. Date/Time Provider Initiated Documentation: 04/23/24 18:17. Limitations to Documentation: no limitations. Information obtained by: patient. History of Present Illness 63 year old F presents to the emergency department with the chief complaint of Leg cramps, described as moderate, Quality is described as aching, Patient started experiencing this day(s) (3) and it has been constant. No relieving factors improve symptom(s), No exacerbating factors reported . Patient notes denies chest pain, fever/chills and shortness of breath. Patient did receive the following treatments prior to arrival, none Related Data Home Medications Medication Instructions Recorded Confirmed cholecalciferol (vitamin D3) 25 25 mcg PO DAILY 04/23/24 04/23/24 mcg (1,000 unit) capsule furosemide 20 mg tablet 20 mg PO DAILY #30 tabs 04/23/24 losartan 50 mg tablet 50 mg PO DAILY 04/23/24 04/23/24 Previous Rx's Medication Instructions Recorded furosemide 20 mg tablet 20 mg PO DAILY #30 tabs 04/23/24 Allergies Allergy/AdvReac Type Severity Reaction Status Date / Time No Known Allergies Allergy Unverified 10/12/22 09:03 General Stated Complaint: GenMedical MONICA: 3 Review of Systems All systems reviewed & are unremarkable except as noted in HPI and below Constitutional Constitutional: Denies chills, Denies fever(s) and Denies weakness Cardiovascular Cardiovascular: Denies chest pain and Denies dyspnea Respiratory Respiratory: Denies cough and Denies dyspnea Gastrointestinal Gastrointestinal: Denies abdominal pain, Denies nausea and Denies vomiting Neurologic Neurologic: Denies weakness Exam Const General: no acute distress Orientation: alert [facility] Head: normal to inspection Ears: external ears normal General nose exam: external nose normal Mouth: moist mucous membranes Eyes General: appearance normal, both eyes and all related structures Neck Neck: normal visual inspection Resp Effort & Inspection: normal respiratory effort and able to speak in complete sentences Cardio Rate: regular rate Skin General skin exam: no rashes or lesions noted Neuro General: patient alert and patient oriented x3 Extrem General: full ROM and capillary refill normal Psych Mental Status: mental status grossly normal Course Vital Signs Vital signs: Vital Signs Temperature 36.7 C 04/23/24 18:23 Pulse 63 04/23/24 18:23 Respiratory Rate 18 04/23/24 18:23 Blood Pressure 199/86 H 04/23/24 18:23 Pulse Oximetry 98 04/23/24 18:23 Temperature 36.7 C 04/23/24 18:23 Pulse 63 04/23/24 18:23 Respiratory Rate 18 04/23/24 18:23 Respiratory Effort Normal 04/23/24 18:27 Blood Pressure 199/86 H 04/23/24 18:23 Blood Pressure Position Sitting 04/23/24 18:23 Pulse Oximetry 98 04/23/24 18:23 Oxygen Delivery Method Room Air 04/23/24 18:23 Oxygen Flow Rate 0 04/23/24 18:23 Medical Decision Making 63-year-old female with a history of hypertension restarted losartan a week or 2 ago, comes in with 2 to 3 days of cramping in her leg and she feels leg swelling for 1 week. Denies any severe pain, fevers, chills. Says the cramps are constant and getting breathing that makes him come and go. She is alert and oriented x 4 on arrival and appears well in no distress. Her lower legs from the mid tibia bilaterally have mild 1+ edema. No calf tenderness, no erythema or warmth. Has intact distal sensation and pulses. Suspect lymphedema, could also be a side effect of the losartan. No chest pain or shortness of breath so doubt cardiac etiology. Will check a CBC, CMP, D-dimer as we do not have ultrasound capabilities no concern for DVT is low, and also check a proBNP. Labs unremarkable, D-dimer below age-adjusted cutoff. Patient is stable and still appears well, suspect lymphedema will place on 20 mg daily Lasix and have her follow-up with her PCP return precautions given Differential Diagnosis Differential Diagnosis: Lymphedema, DVT, medication side effect Lab Data Lab results reviewed: Yes I reviewed the patient's lab results. Quality:SDOH Health Related Social Needs: No Data to Display PFSH All Active Problems (Updated 04/23/24 @ 20:07 by Eyal Ball MD) Leg swelling (Acute) Medical History (Updated 04/23/24 @ 20:07 by Eyal Ball MD) Reflux gastritis Vertigo Hearing impairment Surgical History Colonoscopy - MAC (09/14/17) Family History Other Hyperlipidemia Personal history of malignant neoplasm Social History Smoking/Tobacco Use Status: Never Smoking risk assessment performed?: Yes Drug use: Never Substance use type: does not use Do you feel safe in your relationship?: Yes
[2024-04-23 19:04] LABS: Abs Immature Grans 0.01 10^3/uL (0.0-0.06); Absolute Basophil Count 0.05 10^3/uL (0.0-0.2); Absolute Eosinophil Count 0.25 10^3/uL (0.0-0.7); Absolute Lymphocyte Count 1.88 10^3/uL (1.2-3.4); Absolute Monocyte Count 0.49 10^3/uL (0.1-0.8); Absolute Neutrophil Count 3.02 10^3/uL (1.2-6.7); Basophils % 0.9 %; Eosinophils % 4.4 %; HCT 40.3 % (36.0-46.0); HGB 13.5 g/dL (11.2-15.7); Immature Grans % 0.2 %; MCHC 33.5 % (32.0-36.0); MCV 90 fL (80-95); MPV 11.1 fL (8.0-11.0); Monocytes % 8.6 %; Neutrophils % 52.9 %; Platelet Count 206 10^3/uL (130-400); RDW 13.1 % (11.7-14.6); RDW-SD 42.8 fL
[2024-04-23 19:25] LABS: ALT 50 U/L (14-59); AST 28 U/L (15-37); Alkaline Phosphatase 86 U/L (46-116); Anion Gap 10.3 mmol/L (3-11); BUN 20 mg/dL (7-18); Bilirubin, Total 0.5 mg/dL (0.2-1.0); CO2 27.7 mmol/L (21.0-32.0); CREATININE 1.1 mg/dL (0.55-1.02); Calcium 9.1 mg/dL (8.5-10.1); Chloride 105 mmol/L (98-107); Estimated GFR 57.17 (mL/min/1.73m2); Glucose 93 mg/dL (74-106); Magnesium 2.1 mg/dL (1.8-2.4); NT-proBNP 207 pg/mL (<300); Potassium 3.4 mmol/L (3.5-5.1); Sodium 143 mmol/L (136-145); Total Protein 7.5 g/dL (6.4-8.2)
[2024-04-23 19:56] LABS: D-Dimer 560 ng/mlFEU (<500)
== END 2024-04-23 20:15 | disposition home or self-care (01) ==
LOC: ER 20:09
PROVIDERS: Emergency Provider Emergency Medicine; PCP Family Medicine
DX: R22.31 Localized swelling, mass and lump, right upper limb (principal); I10 Essential (primary) hypertension
CPT/HCPCS: 80053; 99283; 83735; 83880; 85025; 85379

== ENCOUNTER 2024-10-16 02:27 | Outpatient (CLI) | payer OTHER, SELFPAY ==
--- NOTE | 2024-10-16 14:36 | DI.MAMMO_ITS ---
Exam(s) MAMMO SCREENING EXAM: MAMMO SCREENING CLINICAL HISTORY: SCREENING MAMMO Z12.39. TECHNIQUE: Bilateral full field digital CC and MLO mammographic images were obtained with 3D tomosyn thesis and utilizing computer aided detection (CAD). COMPARISON: Prior mammograms were reviewed. FINDINGS: There has been no significant change in the appearance and distribution of the fibroglandular tissue. Benign-appearing calcified density in the left breast is unchanged from prior mammograms. Small lymp h nodes lateral left breast are unchanged. Small nodule posteriorly in right breast is unchanged see n on CC view. There are no new spiculated masses nor malignant appearing microcalcification groups. There is no significant architectural distortion nor skin thickening-retraction. IMPRESSION: Stable benign-appearing findings. No radiographic evidence of malignancy. BI-RADS Category 2 - Benign Findings Breast Density - Category B - Scattered areas of fibroglandular density Breast density Category C or D implies that the patient has dense breast tissue. Dense breast tissue can make it harder to find cancer on a mammogram. Dense breast tissue is also associated with an incr eased risk of breast cancer. This information about the result of the mammogram report was provided to the patient to raise their awareness. Use this report when you speak with the patient about their risks for breast cancer, which includes their family history. At that time, you may recommend additional screening tests (Ultrasoun d or MRI) as these tests may add significant information. A negative radiographic report should not delay biopsy if a dominant or clinically suspicious mass is present. Up to ten percent of cancers are not identified on mammography. A negative report may reinforce clinical impression. Adenosis and dense breasts may obscure an underlying neoplasm. False positive reports average 6 to 10%. Patient will receive a letter notifying them of these results.
== END 2024-10-16 02:47 ==
LOC: DI 02:27
PROVIDERS: PCP Family Medicine; Visit Provider Family Medicine
DX: Z12.31 Encounter for screening mammogram for malignant neoplasm of breast (principal); D24.9 Benign neoplasm of unspecified breast; R92.323 Mammographic fibroglandular density, bilateral breasts
CPT/HCPCS: 77063; 77067

== ENCOUNTER 2024-11-17 13:40 | Emergency (ER) | payer OTHER, SELFPAY ==
[2024-11-17 13:47] VITALS: BP 164/101; PULSE 64; RESP 15; TEMP 36.5; O2SAT 97
[2024-11-17 13:50] VITALS: BP 164/101; PULSE 64; RESP 15; TEMP 36.5; O2SAT 97
--- NOTE | 2024-11-17 13:57 | W.ED.GENAD ---
Discharge Plan Disposition Patient Disposition: Home Discharge Details Clinical Impression: Dog bite of right lower leg, Immunization, tetanus-diphtheria Primary Care Provider: Heather Perez ED Provider: Sandeep Shelton Home Meds and New Rx's Prescriptions: Continued losartan 50 mg tablet 50 mg PO DAILY Patient Comments: TAKE 1 TABLET BY MOUTH EVERY DAY cholecalciferol (vitamin D3) 25 mcg (1,000 unit) capsule 25 mcg PO DAILY Patient Comments: TAKE 1 CAPSULE BY MOUTH EVERY DAY furosemide 20 mg tablet 20 mg PO DAILY Qty: 30 0RF Discharge Instructions Additional Instructions: You are seen in the emergency department for your dog bite. As we discussed, if you develop streaking signs of infection fevers or any foul-smelling drainage from your wound please return to the emergency department as he will likely benefit from antibiotics. Your tetanus was updated. Please follow-up with the financial systems analyst. If the dog shows signs of rabies please return to the emergency department to discuss rabies prophylaxis. Please follow-up as needed with your primary care provider. Discharge Data Discharge Date/Time-TO BE ENTERED AT DEPARTURE: 11/17/24 15:12 HPI General Date/Time Provider Initiated Documentation: 11/17/24 13:42. HPI Narrative: MDM This is an overall very well-appearing normothermic and not tachycardic 64-year-old female with healing right lower extremity puncture wound secondary to dog bite 2 days ago for which patient will be treated with empiric trial of expectant outpatient management following x-ray to assess for foreign body and tetanus immunization. Based on overall well appearance of the healing laceration I felt that the risks of antibiotics outweigh the benefits. Patient and I discussed that she should return to the ED if she developed streaking signs of infection pus foul-smelling drainage or any fevers. We also discussed rabies prophylaxis. Given that the financial systems analyst is involved and that the dog is currently being quarantined no indication for prophylactic rabies. No pain out of proportion to suggest necrotizing soft tissue infection. Patient is not a tobacco user nor diabetic and I do not feel that she has had risk for poor wound healing given how well the wound looks 2 days after the bite. Health digital community manager Kala confirmed with the financial systems analyst that the dog has follow-up with a vet on November 27. HPI This is a 64-year-old female arrived in the emergency department via private vehicle in the setting of a dog bite she sustained 2 days ago to her right lower extremity. Patient reports that she was getting out of her vehicle. She reports that there is a dog across the street who is typically behind a fence and is oftentimes vicious. The dog was reportedly be on the fence and the dentist/owner lost control. The dog ran over to the patient had bit her on her right lower leg. The financial systems analyst is involved in his monitor the dog for 10 days. Patient denies fevers chills streaking signs of infection and any pus from her wound. She reports that she irrigated the wound well. She is not certain when her last tetanus immunization was. She rarely drinks ethanol and denies tobacco and IV drug use. She denies history of diabetes. She has been ambulating and having no pain with ambulation. Exam General: Well-appearing in no acute distress speaking in complete sentences. Head: Normocephalic, atraumatic. Eye:[Pupils equal, round reactive to light.] Extraocular eye movements intact. No conjunctival injection. No scleral icterus. Ear, nose, mouth, throat: Grossly normal inspection. Normal voice, handling secretions normally. Neck: Trachea midline. Cardiovascular: Well-perfused distal extremities. Respiratory: Nonlabored respiration. Gastrointestinal: Nondistended abdomen. Musculoskeletal: On the lateral aspect of the right distal boles there are 2 healing puncture wounds as shown in the following photo: Full range of motion right lower extremity. Skin: Normal for age and race, grossly normal temperature and turgor. No acute rash. Neurologic: Alert and appropriate, no apparent acute deficits. Psychiatric: Mood and manner are appropriate. Grooming and personal hygiene are appropriate. Related Data Home Medications ?Medication ?Instructions ?Recorded ?Confirmed cholecalciferol (vitamin D3) 25 25 mcg PO DAILY 04/23/24 11/17/24 mcg (1,000 unit) capsule furosemide 20 mg tablet 20 mg PO DAILY #30 tabs 04/23/24 11/17/24 losartan 50 mg tablet 50 mg PO DAILY 04/23/24 11/17/24 Previous Rx's ?Medication ?Instructions ?Recorded furosemide 20 mg tablet 20 mg PO DAILY #30 tabs 04/23/24 Allergies Allergy/AdvReac Type Severity Reaction Status Date / Time No Known Allergies Allergy Unverified 11/17/24 13:51 General Stated Complaint: AnimalBite MONICA: 4 Course Vital Signs Vital signs: Vital Signs Temperature 36.5 C 12/23/24 13:47 Pulse 64 11/17/24 13:47 Respiratory Rate 15 11/17/24 13:47 Blood Pressure 164/101 H 11/17/24 13:47 Pulse Oximetry 97 11/17/24 13:47 Temperature 36.5 C 11/17/24 13:50 Temperature Source Oral 11/17/24 13:50 Pulse 64 11/17/24 13:50 Respiratory Rate 15 11/17/24 13:50 Blood Pressure 164/101 H 11/17/24 13:50 Blood Pressure Position Sitting 11/17/24 13:50 Pulse Oximetry 97 11/17/24 13:50 Oxygen Delivery Method Room Air 11/17/24 13:50 Oxygen Flow Rate 0 11/17/24 13:50 Medical Decision Making Quality:SDOH Health Related Social Needs: No Data to Display PFSH All Active Problems (Updated 11/17/24 @ 14:10 by Sandeep Shelton MD) Immunization, tetanus-diphtheria (Acute) Dog bite of right lower leg (Acute) Medical History (Updated 11/17/24 @ 14:10 by Sandeep Shelton MD) Reflux gastritis Vertigo Hearing impairment Surgical History Colonoscopy - MAC (09/14/17) Family History Other Hyperlipidemia Personal history of malignant neoplasm Social History Smoking/Tobacco Use Status: Never Smoking risk assessment performed?: Yes Drug use: Never Substance use type: does not use Do you feel safe in your relationship?: Yes PAWSS Have you Been Recently Intoxicated or Drunk Within the Last 30 days?: No Have you Ever Experienced Previous Episodes of Alcohol Withdrawal?: No Have you ever Experienced Withdrawal Seizures?: No Have you ever Experienced Delirium Tremens(DT)s?: No Have you ever undergone Alcohol Rehabilitation Treatment (i.e, inpt ot outpatient treatment programs)?: No Have you ever Experienced Blackouts?: No Have you ever Combined Alcohol with other Downers within the last 90 days?: No Have you ever Combined Alcohol with any other Substance of Abuse during the last 90 days?: No Positive Blood Alcohol level on Presentation? [PCS.BAL]: No Evidence of Increased Autonomic Activity (i.e. HR>120, tremor, sweating, agitation, nausea)?: No Result: 0
--- NOTE | 2024-11-17 14:40 | DI.RAD_ITS ---
Exam(s) XR TIB/FIB RT EXAM: XR TIB/FIB RT CLINICAL HISTORY: Dog bite. TECHNIQUE: 2D digital imaging was performed. Two views. COMPARISON: No exams were available for comparison FINDINGS: BONES: No acute fracture is present. No bony destructive lesion is seen. Visualized portion of knee a nd ankle joints are unremarkable. SOFT TISSUE: Mild lateral lower leg edema. No foreign body. IMPRESSION: mild soft tissue edema. DATA REPOSITORY: RADIATION DOSE DELIVERED:
[2024-11-17] MEDS: Diph,Pertuss(Acell),Tet Vac/Pf 0.5 ML SYR IM (15:08)
--- NOTE | 2024-11-17 18:02 | NUR.NOTE ---
Addendum entered by Kala Kaye 11/24/24 09:21: Called the [facility] office and they no longer have a fax machine. The animal bite report emailed to [email or web address]. Original Note: [id number] spoke with Beatrice Lucas, health officer for [place]. She is aware of the animal bite. Dog is not up to date. That the dog is to be quarantined for 10 days, on Nov 27 will be taken to vet to be assessed and given a rabies vaccine. She will verify that this is done. At this time unable to fax to [facility] Clerk. Will try again on and then is it does not go through on . Nursing Note:
== END 2024-11-17 15:12 | disposition home or self-care (01) ==
PROVIDERS: Emergency Provider Emergency Medicine; PCP Family Medicine
DX: S81.832A Puncture wound without foreign body, left lower leg, initial encounter (principal); Z23 Encounter for immunization; W54.0XXA Bitten by dog, initial encounter; Y93.89 Activity, other specified; Y92.414 Local residential or business street as the place of occurrence of the external cause
CPT/HCPCS: 90471; 90715; 99283; 73590

== ENCOUNTER 2024-11-24 09:48 | Outpatient (REF) | payer OTHER, SELFPAY ==
[2024-11-24 15:33] LABS: Anion Gap 8.9 mmol/L (3-11); BUN 15 mg/dL (7-18); CO2 27.1 mmol/L (21.0-32.0); CREATININE 0.9 mg/dL (0.55-1.02); Calcium 9.4 mg/dL (8.5-10.1); Chloride 107 mmol/L (98-107); Estimated GFR 72.28 (mL/min/1.73m2); Glucose 110 mg/dL (74-106); Potassium 4.3 mmol/L (3.5-5.1); Sodium 143 mmol/L (136-145)
== END 2024-11-24 09:49 | disposition home or self-care (01) ==
LOC: NCHCN 09:48
PROVIDERS: PCP Family Medicine; Visit Provider Family Medicine
DX: E66.9 Obesity, unspecified (principal)
CPT/HCPCS: 80048

== ENCOUNTER 2025-08-21 11:57 | Emergency (ER) | payer OTHER, SELFPAY ==
[2025-08-21] VITALS (8 sets, daily range): BP systolic 176–208; BP diastolic 92–128; PULSE 54–69; RESP 10–18; TEMP 36.6; O2SAT 94–97
--- NOTE | 2025-08-21 12:00 | RT.EKG_ITS ---
APPROVED REPORT Exam: Resting ECG Reason for Exam: chest pain Patient Location: E HR:59 bpm ECG Measurements Heart Rate 59 AXIS MS 161 P 13 QRSd 99 QRS -30 QT 428 T 53 QTc 425 Conclusion Sinus bradycardia...rate< 60 Left ventricular hypertrophy...multiple voltage criteria
--- NOTE | 2025-08-21 12:23 | DI.RAD_ITS ---
Exam(s) XR CHEST 1V IN DI DEPT EXAM: XR CHEST 1V IN DI DEPT CLINICAL HISTORY: Chest pain TECHNIQUE: 2D digital imaging was performed. COMPARISON: CR CHEST 2 VIEWS PA,LAT from 08/06/2017 FINDINGS: LUNGS: Clear. No pleural abnormality seen. HEART: Normal size. AORTA: Normal diameter. BONES: Unremarkable for age. Soft tissues: Unremarkable. IMPRESSION: No acute findings. DATA REPOSITORY: RADIATION DOSE DELIVERED:
[2025-08-21 12:32] LABS: Abs Immature Grans 0.03 10^3/uL (0.0-0.06); HCT 43.6 % (36.0-46.0); HGB 14.6 g/dL (11.2-15.7); Immature Grans % 0.4 %; MCH 29.6 pg (27.0-33.0); MCHC 33.5 % (32.0-36.0); MCV 88 fL (80-95); MPV 11.2 fL (8.0-11.0); Platelet Count 237 10^3/uL (130-400); RBC 4.94 10^6/uL (3.93-5.22); RDW 12.7 % (11.7-14.6); RDW-SD 40.8 fL; WBC 7.32 10^3/uL (4.4-10.8)
[2025-08-21 13:00] LABS: ALT 53 U/L (14-59); AST 33 U/L (15-37); Albumin 4.5 g/dL (3.4-5.0); Alkaline Phosphatase 108 U/L (46-116); Anion Gap 9.8 mmol/L (3-11); BUN 11 mg/dL (7-18); Bilirubin, Total 0.6 mg/dL (0.2-1.0); CO2 30.2 mmol/L (21.0-32.0); Calcium 9.4 mg/dL (8.5-10.1); Chloride 100 mmol/L (98-107); Estimated GFR 72.28 (mL/min/1.73m2); Glucose 115 mg/dL (74-106); Magnesium 2.3 mg/dL (1.8-2.4); Potassium 3.5 mmol/L (3.5-5.1); Sodium 140 mmol/L (136-145); Total Protein 8.6 g/dL (6.4-8.2); Troponin I 5 ng/L (<or=51)
[2025-08-21 13:06] LABS: NT-proBNP 47 pg/mL (<300)
--- NOTE | 2025-08-21 13:15 | DI.US_ITS ---
Exam(s) US ABDOMEN LIMITED EXAM: US ABDOMEN LIMITED CLINICAL HISTORY: RUQ pain with eatiing, concern fro acute frankie TECHNIQUE: Ultrasound of the right upper quadrant performed using standard protocol. COMPARISON: CT CT ABDOMEN PELVIS W from 02/24/2019 US US ABDOMEN LIMITED from 02/01/2023 FINDINGS: LIVER: Moderate hepatic steatosis is again noted. The liver is measured at 18 cm in length. Posterior portions of the liver were not well seen. No focal liver lesions are identified GALLBLADDER: No evidence of cholelithiasis. No evidence of wall thickening. No pericholecystic fluid identified. KAUR'S SIGN: Negative. BILIARY SYSTEM: No intrahepatic or extrahepatic biliary ductal dilation. RIGHT KIDNEY: Normal size. No evidence of renal calculi. No evidence of hydronephrosis. No suspicious renal mass. No cyst identified. PANCREAS: Normal where visualized. ABDOMINAL AORTA AND IVC: Visualized portions normal caliber. ASCITES: None seen. IMPRESSION: Mildly enlarged liver with moderate hepatic steatosis. The gallbladder is unremarkable. No biliary dilatation. DATA REPOSITORY:
[2025-08-21 13:35] LABS: Troponin I 5 ng/L (<or=51)
--- NOTE | 2025-08-21 14:15 | W.ED.GENAD ---
Discharge Plan Disposition Patient Disposition: Home Discharge Details Clinical Impression: Right upper quadrant abdominal pain, Nonalcoholic hepatosteatosis Primary Care Provider: Heather Perez ED Provider: Kobi Borrego Home Meds and New Rx's Prescriptions: Continued benzonatate 100 mg capsule 100 mg PO TID PRN (Reason: cough) Qty: 14 0RF albuterol sulfate 90 mcg/actuation HFA aerosol inhaler 2 puff inhalation Q6H PRN (Reason: shortness of breath or wheezing) Qty: 8.5 0RF azithromycin 250 mg tablet See Rx Instructions PO .COMPLEX Qty: 6 0RF Rx Instructions: For 250 mg dose pack: take 500 mg today (day 1), then 250 mg for 4 days (days 2-5) PO nystatin 100,000 unit/gram cream 1 applic topical BID nystatin [Nystop] 100,000 unit/gram powder 1 applic topical BID losartan 50 mg tablet 50 mg PO DAILY Patient Comments: TAKE 1 TABLET BY MOUTH EVERY DAY cholecalciferol (vitamin D3) 25 mcg (1,000 unit) capsule 25 mcg PO DAILY Patient Comments: TAKE 1 CAPSULE BY MOUTH EVERY DAY Discharge Instructions Instructions: Metabolic dysfunction-associated steatotic liver disease, Abdominal Pain, Adult ED Additional Instructions: Please follow-up with your primary care provider regarding your visit to the emergency department today. Be sure to discuss results of all test performed here today to include radiology, and laboratory testing as well as results for any pending cultures. Should your symptoms worsen, or if you develop new concerning symptoms, please return immediately emergency department for further evaluation. HPI General Date/Time Provider Initiated Documentation: 08/21/25 12:13. HPI Narrative: MDM/Narrative: 64-year-old female presented for right upper quadrant abdominal pain while eating approximately 30 minutes prior to arrival since improved. Patient with positive Andino sign on exam. Presentation is concerning for possibly cholecystitis or symptomatic gallstones. History of GERD, however findings to be less likely given patient immediately took Maalox without relief. Will obtain ultrasound of the right upper quadrant to assess for possible cholecystitis/symptomatic gallstones. Will obtain screening labs and if abnormal will consider further imaging such as CAT scan of the abdomen pelvis for evaluation of other possible causes of pain at that time. Given patient's advanced age and multiple risk factors, will also consider ACS, although EKG shows no acute changes. ED course: 3:10 PM On reassessment, patient notes resolution of symptoms. Results reviewed and shared with the patient was agreeable to plan for discharge follow-up primary care This document was created with assistance from [employer] The patient consented to its use. Disposition: Home HPI: The patient is a 65-year-old female with a medical history significant for hypertension and gastroesophageal reflux disease (GERD), presenting with acute right-sided abdominal pain. The pain onset occurred approximately 1.5 hours ago, localized under the right costal margin, and was associated with the ingestion of popcorn and chocolates. The patient describes the pain as similar to previous GERD episodes. She has no history of abdominal surgeries, and her gallbladder is intact. She denies any recent chest pain or dyspnea. The patient reports experiencing diarrhea over the past day, without hematochezia. The abdominal pain is exacerbated by leaning forward and has not been alleviated by aspirin or Maalox. She has not had any recent illnesses. The patient has a brief smoking history from age 21. She also reports experiencing tingling in her ankles prior to the onset of abdominal pain. There are no known hepatic or renal issues. ROS: Negative besides as mentioned above Exam: Vital signs: Reviewed. General Appearance: Alert and oriented. No acute distress. HEENT: NCAT, EOMI, not icteric. External ears normal. No rhinorrhea. Moist mucous membranes. Neck: Supple, full range of motion, no observable masses, No meningeal sign. Respiratory: No Respiratory distress. No tachypnea. Cardiovascular: RRR, no edema. Gastrointestinal: Mild tenderness under right rib cage, pain worsened with deep breath and palpation. Back: No midline tenderness to palpation or palpable step-offs of the C/T/L spine. Skin: Warm and dry, no rash. Neurological: Normal Gait, Grossly intact. Psychiatric: Appropriate for situation. Rhythm: NSR Rate: 59 bpm Shepherd: Leftward axis Intervals: Normal intervals Other findings: No acute ST segment or T wave changes to suggest acute ischemia. Labs: Laboratory Tests Range/Units 08/21/25 08/21/25 12:10 13:15 WBC (4.4-10.8) 10^3/uL 7.32 RBC (3.93-5.22) 10^6/uL 4.94 Hgb (11.2-15.7) g/dL 14.6 Hct (36.0-46.0) % 43.6 MCV (80-95) fL 88 MCH (27.0-33.0) pg 29.6 MCHC (32.0-36.0) % 33.5 RDW (11.7-14.6) % 12.7 Plt Count (130-400) 10^3/uL 237 MPV (8.0-11.0) fL 11.2 H Immature Gran % % 0.4 Neutrophils % % 62.7 Lymphocytes % % 23.8 Monocytes % % 9.8 Eosinophils % % 2.5 Basophils % % 0.8 Nucleated RBC % (0.0-0.3) % 0.0 Absolute Neutrophils (1.2-6.7) 10^3/uL 4.59 Absolute Lymphocytes (1.2-3.4) 10^3/uL 1.74 Absolute Monocytes (0.1-0.8) 10^3/uL 0.72 Absolute Eosinophils (0.0-0.7) 10^3/uL 0.18 Absolute Basophils (0.0-0.2) 10^3/uL 0.06 Sodium (136-145) mmol/L 140 Potassium (3.5-5.1) mmol/L 3.5 Chloride (98-107) mmol/L 100 Carbon Dioxide (21.0-32.0) mmol/L 30.2 Anion Gap (3-11) mmol/L 9.8 BUN (7-18) mg/dL 11 Creatinine (0.55-1.02) mg/dL 0.9 Est GFR (CKD-EPI 2020) (mL/min/1.73m2) 72.28 Glucose (74-106) mg/dL 115 H Calcium (8.5-10.1) mg/dL 9.4 Magnesium (1.8-2.4) mg/dL 2.3 Total Bilirubin (0.2-1.0) mg/dL 0.6 AST (15-37) U/L 33 ALT (14-59) U/L 53 Alkaline Phosphatase (46-116) U/L 108 Troponin I (<or=51) ng/L 5 5 NT-Pro-B Natriuret Pep (<300) pg/mL 47 Total Protein (6.4-8.2) g/dL 8.6 H Albumin (3.4-5.0) g/dL 4.5 Radiology: Exam(s) XR CHEST 1V IN DI DEPT EXAM: XR CHEST 1V IN DI DEPT CLINICAL HISTORY: Chest pain TECHNIQUE: 2D digital imaging was performed. COMPARISON: CR CHEST 2 VIEWS PA,LAT from 08/06/2017 FINDINGS: LUNGS: Clear. No pleural abnormality seen. HEART: Normal size. AORTA: Normal diameter. BONES: Unremarkable for age. Soft tissues: Unremarkable. IMPRESSION: No acute findings. Exam(s) US ABDOMEN LIMITED EXAM: US ABDOMEN LIMITED CLINICAL HISTORY: RUQ pain with eatiing, concern fro acute frankie TECHNIQUE: Ultrasound of the right upper quadrant performed using standard protocol. COMPARISON: CT CT ABDOMEN PELVIS W from 02/24/2019 US US ABDOMEN LIMITED from 02/01/2023 FINDINGS: LIVER: Moderate hepatic steatosis is again noted. The liver is measured at 18 cm in length. Posterior portions of the liver were not well seen. No focal liver lesions are identified GALLBLADDER: No evidence of cholelithiasis. No evidence of wall thickening. No pericholecystic fluid identified. ANDINO'S SIGN: Negative. BILIARY SYSTEM: No intrahepatic or extrahepatic biliary ductal dilation. RIGHT KIDNEY: Normal size. No evidence of renal calculi. No evidence of hydronephrosis. No suspicious renal mass. No cyst identified. PANCREAS: Normal where visualized. ABDOMINAL AORTA AND IVC: Visualized portions normal caliber. ASCITES: None seen. IMPRESSION: Mildly enlarged liver with moderate hepatic steatosis. The gallbladder is unremarkable. No biliary dilatation. DATA REPOSITORY: Related Data Home Medications ?Medication ?Instructions ?Recorded ?Confirmed cholecalciferol (vitamin D3) 25 25 mcg PO DAILY 04/23/24 12/22/24 mcg (1,000 unit) capsule losartan 50 mg tablet 50 mg PO DAILY 04/23/24 12/22/24 nystatin 100,000 unit/gram topical 1 applic topical BID 12/08/24 12/22/24 cream nystatin 100,000 unit/gram topical 1 applic topical BID 12/08/24 12/22/24 powder (Nystop) albuterol sulfate 90 mcg/actuation 2 puff inhalation Q6H PRN 12/22/24 12/22/24 aerosol inhaler shortness of breath or wheezing #8.5 grams azithromycin 250 mg tablet See Rx Instructions PO .COMPLEX #6 12/22/24 12/22/24 tabs benzonatate 100 mg capsule 100 mg PO TID PRN cough #14 caps 12/22/24 12/22/24 Previous Rx's ?Medication ?Instructions ?Recorded albuterol sulfate 90 mcg/actuation 2 puff inhalation Q6H PRN 12/22/24 aerosol inhaler shortness of breath or wheezing #8.5 grams azithromycin 250 mg tablet See Rx Instructions PO .COMPLEX #6 12/22/24 tabs benzonatate 100 mg capsule 100 mg PO TID PRN cough #14 caps 12/22/24 Allergies Allergy/AdvReac Type Severity Reaction Status Date / Time No Known Allergies Allergy Unverified 12/22/24 10:05 General Stated Complaint: Chest Pain MONICA: 3 Course Vital Signs Vital signs: Vital Signs Temperature 36.6 C 08/21/25 12:01 Pulse 65 08/21/25 12:01 Respiratory Rate 18 08/21/25 12:01 Blood Pressure 208/128 H 08/21/25 12:01 Pulse Oximetry 94 08/21/25 12:01 Temperature 36.6 C 08/21/25 12:01 Pulse 58 L 08/21/25 13:41 Pulse 58 L 08/21/25 13:41 Respiratory Rate 10 L 08/21/25 13:41 Respiratory Effort Normal 08/21/25 12:27 Respiratory Depth Normal 08/21/25 12:27 Respiratory Pattern Normal 08/21/25 12:27 Blood Pressure 208/128 H 08/21/25 12:01 Pulse Oximetry 97 08/21/25 13:41 Pain Level 6 08/21/25 12:01 Lab/Test Results Lab/Test Results: Laboratory Tests Range/Units 08/21/25 08/21/25 12:10 13:15 WBC (4.4-10.8) 10^3/uL 7.32 RBC (3.93-5.22) 10^6/uL 4.94 Hgb (11.2-15.7) g/dL 14.6 Hct (36.0-46.0) % 43.6 MCV (80-95) fL 88 MCH (27.0-33.0) pg 29.6 MCHC (32.0-36.0) % 33.5 RDW (11.7-14.6) % 12.7 Plt Count (130-400) 10^3/uL 237 MPV (8.0-11.0) fL 11.2 H Immature Gran % % 0.4 Neutrophils % % 62.7 Lymphocytes % % 23.8 Monocytes % % 9.8 Eosinophils % % 2.5 Basophils % % 0.8 Nucleated RBC % (0.0-0.3) % 0.0 Absolute Neutrophils (1.2-6.7) 10^3/uL 4.59 Absolute Lymphocytes (1.2-3.4) 10^3/uL 1.74 Absolute Monocytes (0.1-0.8) 10^3/uL 0.72 Absolute Eosinophils (0.0-0.7) 10^3/uL 0.18 Absolute Basophils (0.0-0.2) 10^3/uL 0.06 Sodium (136-145) mmol/L 140 Potassium (3.5-5.1) mmol/L 3.5 Chloride (98-107) mmol/L 100 Carbon Dioxide (21.0-32.0) mmol/L 30.2 Anion Gap (3-11) mmol/L 9.8 BUN (7-18) mg/dL 11 Creatinine (0.55-1.02) mg/dL 0.9 Est GFR (CKD-EPI 2020) (mL/min/1.73m2) 72.28 Glucose (74-106) mg/dL 115 H Calcium (8.5-10.1) mg/dL 9.4 Magnesium (1.8-2.4) mg/dL 2.3 Total Bilirubin (0.2-1.0) mg/dL 0.6 AST (15-37) U/L 33 ALT (14-59) U/L 53 Alkaline Phosphatase (46-116) U/L 108 Troponin I (<or=51) ng/L 5 5 NT-Pro-B Natriuret Pep (<300) pg/mL 47 Total Protein (6.4-8.2) g/dL 8.6 H Albumin (3.4-5.0) g/dL 4.5 PFSH All Active Problems (Updated 08/21/25 @ 15:30 by Kobi Borrego MD) Nonalcoholic hepatosteatosis (Acute) Right upper quadrant abdominal pain (Acute) Paresthesia (Acute) Disorder of nasal sinus (Acute) Prediabetes (Acute) Hemorrhoids (Acute) Hypertension (Chronic) Hand pain (Acute) Carpal tunnel syndrome (Acute) Candidiasis of skin (Acute) Vitamin B deficiency (Acute) Steatohepatitis, non-alcoholic (Acute) Cramp in lower extremity associated with sleep (Acute) Obesity (Chronic) Impaired fasting glucose (Acute) Vitamin D deficiency (Acute) Hordeolum (Acute) Low back pain (Acute) Gastroesophageal reflux (Chronic) Peripheral venous insufficiency (Acute) Diabetes (Chronic) Alcohol abuse (Chronic) Pain in toe (Acute) Neuropathy (Acute) Medical History Reflux gastritis Hearing impairment Surgical History Colonoscopy - MAC (09/14/17) Family History Other Hyperlipidemia Personal history of malignant neoplasm Social History Smoking/Tobacco Use Status: Never Smoking risk assessment performed?: Yes Drug use: Never Substance use type: does not use Do you feel safe in your relationship?: Yes
[2025-08-21] MEDS: Losartan 25 MG TAB 50 MG PO (14:28)
== END 2025-08-21 15:45 | disposition home or self-care (01) ==
PROVIDERS: Emergency Provider General Practice; PCP Family Medicine
DX: R10.11 Right upper quadrant pain (principal); K76.0 Fatty (change of) liver, not elsewhere classified; I10 Essential (primary) hypertension
CPT/HCPCS: 36415; 80053; 93005; 99284; 71045; 76705; 83735; 83880; 84484; 85025; 93010

== ENCOUNTER 2025-10-08 13:48 | Outpatient (REF) | payer OTHER, SELFPAY ==
[2025-10-08 14:58] LABS: Glucose Negative (Negative)
== END 2025-10-08 13:49 | disposition home or self-care (01) ==
LOC: NCHCN 13:48
PROVIDERS: PCP Family Medicine
DX: M54.6 Pain in thoracic spine (principal)
CPT/HCPCS: 81003